=== PATIENT | male | born 2000 | race Caucasian/White ===

== ENCOUNTER 2020-12-28 15:06 | Emergency (ER) | payer BC ==
[~2020-12-28] VITALS: Ht 167.6 cm; Wt 77.1 kg
[2020-12-28 15:06] VITALS: BP_SYST 146
[2020-12-28] MEDS ORDERED: ONDANSETRON 4 MG ODT TAB ONE (15:38)
[2020-12-28] MEDS ORDERED: KETOROLAC TROMETHAMINE 60 MG/2 ML VIAL IM ONE ×2 (15:38→15:45)
[2020-12-28] MEDS ORDERED: ONDANSETRON 4 MG ODT TAB PO ONE (15:45)
[2020-12-28 15:59] LABS: BASOPHILS % (AUTO) 0.2 % (0.0-2.0); HEMATOCRIT 47.6 % (36-54); HEMOGLOBIN 16.4 g/dL (14.0-18.0); LYMPHOCYTES # (AUTO) 1.1 K/uL (1.0-5.5); LYMPHOCYTES % (AUTO) 6.2 % (20.5-51.5); MEAN CORPUSCULAR HEMOGLOBIN 30 pg (27-31); MEAN CORPUSCULAR HGB CONC 35 % (32-36); MEAN CORPUSCULAR VOLUME 86 fL (79.0-98.0); MONOCYTES # (AUTO) 0.6 K/uL (0.0-1.0); MONOCYTES % (AUTO) 3.2 % (1.7-9.3); NEUTROPHILS # (AUTO) 16.4 K/uL (1.8-7.7); NEUTROPHILS % (AUTO) 90.4 % (40.0-70.0); PLATELET COUNT (AUTO) 265 K/uL (130-430); RED BLOOD CELL COUNT(AUTO) 5.52 MIL/uL (4.2-6.2); RED CELL DISTRIBUTION WIDTH 13.1 % (9.0-15.0); WHITE BLOOD COUNT (AUTO) 18.1 K/uL (4.5-11.0)
[2020-12-28 16:20] LABS: BILIRUBIN,URINE 1+ (NEGATIVE); BLOOD, URINE 3+ (NEGATIVE); CLARITY/URINE SL CLOUDY (CLEAR); COLOR,URINE YELLOW (YELLOW); GLUCOSE,URINE NEGATIVE (NEGATIVE); KETONES,URINE TRACE (NEGATIVE); LEUKOCYTE ESTERASE ,URINE NEGATIVE (NEGATIVE); NITRITE, URINE NEGATIVE (NEGATIVE); PROTEIN URINE 1+ (NEGATIVE); UROBILINOGEN,URINE 0.2 (0.2-1.0)
[2020-12-28 16:23] LABS: PROTHROMBIN TIME 10.5 SECS (9.5-12.5)
[2020-12-28 16:33] LABS: CALCIUM 9.6 mg/dL (8.4-11.0); CREATININE 1.29 mg/dL (0.55-1.30); POTASSIUM 4.6 mmol/L (3.5-5.1)
[2020-12-28 16:35] LABS: BACTERIA,URINE MANY /HPF (None Seen); RBC,URINE >100 /HPF (0-3); WBC,URINE 0-3 /HPF (0-3)
[2020-12-28 16:36] LABS: MUCUS,URINE 1+ /LPF (None Seen)
[2020-12-28 16:37] LABS: ALBUMIN 4.8 g/dL (3.4-4.8); TOTAL BILIRUBIN 0.4 mg/dL (0.0-1.0)
[2020-12-28] MEDS ORDERED: HYDR-4272 PO (16:51)
[2020-12-28] MEDS ORDERED: IBUP-1971 PO (16:51)
[2020-12-28 17:22] VITALS: BP_SYST 146
== END 2020-12-28 17:22 | disposition home or self-care (01) ==
LOC: SED 15:06
DX: N20.0 Calculus of kidney (principal); J45.909 Unspecified asthma, uncomplicated
CPT/HCPCS: 36415; 74176; 76376; 81000; 80053; 82150; 83690; 85025; 85610; 85730; 87086; 96372; 99284; J1885; Q0162